=== PATIENT | female | born 2005 | race Hispanic/Latino ===

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

== ENCOUNTER 2024-02-22 16:11 | Emergency (ER) | payer OTHER ==
[~2024-02-22] VITALS: Ht 152.4 cm; Wt 80.3 kg
[2024-02-22] MEDS: MAG/ALUM/SIMETH 30 ML UDCUP PO ONE (16:48)
[2024-02-22] MEDS: LIDOCAINE HCL 2% VISCOUS 15 ML UDCUP PO ONE (16:48)
[2024-02-22 16:54] LABS: BASOPHILS # (AUTO) 0.04 K/uL (0.00-0.20); BASOPHILS % (AUTO) 0.4 % (0.0-5.0); EOSINOPHILS # (AUTO) 0.01 K/uL (0.00-0.70); EOSINOPHILS % (AUTO) 0.1 % (0.0-8.0); HEMATOCRIT 39.6 % (36-48); IMMATURE GRANULOCYTE ABSOLUTE 0.04 K/uL (0-1); LYMPHOCYTES # (AUTO) 4.4 K/uL (1.0-4.8); LYMPHOCYTES % (AUTO) 43.2 % (21.0-51.0); MEAN CORPUSCULAR HEMOGLOBIN 28.1 pg (27.0-33.0); MEAN CORPUSCULAR HGB CONC 34.6 g/dL (32.0-36.0); MEAN CORPUSCULAR VOLUME 81.3 fL (80-100); MONOCYTES # (AUTO) 0.8 K/uL (0.1-1.0); MONOCYTES % (AUTO) 7.7 % (3.0-13.0); NEUTROPHILS # (AUTO) 4.9 K/uL (1.8-7.7); NEUTROPHILS % (AUTO) 48.2 % (40.0-77.0); PLATELET COUNT (AUTO) 309 K/uL (130-400); RED BLOOD CELL COUNT(AUTO) 4.87 MIL/uL (4.00-5.50); RED CELL DISTRIBUTION WIDTH 12.7 % (11.0-15.5); WHITE BLOOD COUNT (AUTO) 10.1 K/uL (4.8-10.8)
[2024-02-22 17:11] LABS: CREATININE 0.8 mg/dL (0.5-1.0); POTASSIUM 3.8 mmol/L (3.5-5.1)
[2024-02-22 17:47] VITALS: BP 123/74; PULSE 78; RESP 18; O2SAT 98
== END 2024-02-22 17:52 | disposition home or self-care (01) ==
LOC: EDH 16:11
DX: K21.9 Gastro-esophageal reflux disease without esophagitis (principal)
CPT/HCPCS: 36415; 71045; 80048; 84484; 85025; 93005

== ENCOUNTER 2024-02-24 12:34 | Emergency (ER) | payer OTHER ==
[~2024-02-24] VITALS: Ht 152.4 cm; Wt 78.0 kg
[2024-02-24] MEDS: KETOROLAC 60 MG VIAL (30MG/ML) IM ONE (13:06)
[2024-02-24] MEDS ORDERED: IBUP-2077 PO (13:58)
[2024-02-24] MEDS ORDERED: METH4TAB3 PO (13:58)
[2024-02-24 14:03] VITALS: BP 110/62; PULSE 75; RESP 16; O2SAT 99
== END 2024-02-24 14:13 | disposition home or self-care (01) ==
LOC: EDH 12:34
DX: M94.0 Chondrocostal junction syndrome [Tietze] (principal)
CPT/HCPCS: 99284; 84484; 96372; 93005; J1885

== ENCOUNTER 2024-04-12 15:48 | Emergency (ER) | payer OTHER ==
[~2024-04-12] VITALS: Ht 154.9 cm; Wt 70.3 kg
[~2024-04-12 15:48] MED LIST: IBUP-2077 PO; METH4TAB3 PO
[2024-04-12 16:40] LABS: ADD UA MICROSCOPIC YES; APPEARANCE,URINE CLEAR (CLEAR); BILIRUBIN,URINE NEGATIVE (NEGATIVE); COLOR,URINE YELLOW (YELLOW); GLUCOSE, URINE (UA) NEGATIVE (NEGATIVE); KETONES,URINE 100 mg/dL (NEGATIVE); LEUKOCYTE ESTERASE ,URINE NEGATIVE Leu/uL (NEGATIVE); NITRATE,URINE NEGATIVE (NEGATIVE); OCCULT BLOOD,URINE SMALL (NEGATIVE); PH,URINE 5.5 (5.0-8.0); PROTEIN,URINE 30 mg/dL (NEGATIVE); UROBILINOGEN,URINE 3 mg/dL (0.2-1.0)
[2024-04-12 16:43] LABS: BACTERIA,URINE RARE /HPF (None Seen); MUCUS,URINE FEW LPF (None Seen); SQUAMOUS EPITHELIAL CELL,UR FEW /HPF (0-2)
[2024-04-12 16:44] LABS: HCG,QUALITATIVE URINE NEGATIVE (NEGATIVE)
[2024-04-12 16:58] LABS: BASOPHILS # (AUTO) 0.04 K/uL (0.00-0.20); BASOPHILS % (AUTO) 0.4 % (0.0-5.0); EOSINOPHILS # (AUTO) 0.01 K/uL (0.00-0.70); EOSINOPHILS % (AUTO) 0.1 % (0.0-8.0); HEMATOCRIT 39.5 % (36-48); IMMATURE GRANULOCYTE ABSOLUTE 0.02 K/uL (0-1); LYMPHOCYTES # (AUTO) 3.1 K/uL (1.0-4.8); LYMPHOCYTES % (AUTO) 33.8 % (21.0-51.0); MEAN CORPUSCULAR HGB CONC 34.2 g/dL (32.0-36.0); MEAN CORPUSCULAR VOLUME 81.8 fL (80-100); MONOCYTES # (AUTO) 0.6 K/uL (0.1-1.0); MONOCYTES % (AUTO) 6.7 % (3.0-13.0); NEUTROPHILS # (AUTO) 5.4 K/uL (1.8-7.7); NEUTROPHILS % (AUTO) 58.8 % (40.0-77.0); PLATELET COUNT (AUTO) 351 K/uL (130-400); RED BLOOD CELL COUNT(AUTO) 4.83 MIL/uL (4.00-5.50); RED CELL DISTRIBUTION WIDTH 12.2 % (11.0-15.5); WHITE BLOOD COUNT (AUTO) 9.2 K/uL (4.8-10.8)
[2024-04-12 17:05] LABS: CREATININE 0.8 mg/dL (0.5-1.0); POTASSIUM 3.8 mmol/L (3.5-5.1)
[2024-04-12 17:34] LABS: ALBUMIN 4.4 g/dL (3.5-5.0); BILIRUBIN,DIRECT 0.2 mg/dL (0.0-0.3); BILIRUBIN,TOTAL 0.7 mg/dL (0.2-1.0); TOTAL PROTEIN, SERUM 8.5 g/dL (6.0-8.3)
[2024-04-12 18:23] VITALS: BP 104/67; PULSE 67; RESP 17; TEMP 98.6; O2SAT 96
== END 2024-04-12 18:29 | disposition home or self-care (01) ==
LOC: EDH 15:48
DX: K76.0 Fatty (change of) liver, not elsewhere classified (principal); F41.9 Anxiety disorder, unspecified; Z79.899 Other long term (current) drug therapy
CPT/HCPCS: 36415; 74176; 80048; 80076; 81001; 81025; 85025

== ENCOUNTER 2024-05-30 14:25 | Emergency (ER) | payer SELFPAY ==
[~2024-05-30] VITALS: Ht 154.9 cm; Wt 70.3 kg
--- NOTE | 2024-05-30 14:40 | ERN ---
ED Note History of Present Illness Stated Complaint: BURNING URINATION Chief Complaint: Painful Urination Time Seen by MD: 14:29 Dictation: PATIENT IS A 19-YEAR-OLD FEMALE STATES SHE WAS HAVING BURNING URINATION ONSET YESTERDAY THAT WITHOUT FEVER CHILLS NAUSEA VOMITING. SHE STATES THE BURNING WENT AWAY AND THEN THIS MORNING CAME BACK AND NOW SHE SEES SOME BLOOD IN HER URINE. SHE DENIES ANY FLANK PAIN HAS NOT TAKEN ANYTHING PRIOR TO ARRIVAL FOR PAIN. STATES SHE DOES HAVE A HISTORY OF URINARY TRACT INFECTIONS, ALSO IS SEXUA LLY ACTIVE WITHOUT CONTROL. Allergies: Coded Allergies: No Known Allergies (Unverified Allergy, Unknown, 02/22/24) Home Meds Active Scripts Phenazopyridine HCl (Pyridium) 200 Mg Tablet, 200 MG PO TID for painful urination, #10 TAB 0 Refills Prov:MARINA OLIVEROS NP 05/30/24 Ibuprofen (Ibuprofen 800 mg Tab) 800 Mg Tab, 800 MG PO Q8H PRN for fever or pain, #30 TAB 0 Refills Prov:MARINA OLIVEROS NP 05/30/24 Amoxicillin/Potassium Clav (Amox Tr-K Clv 875-125 mg Tab) 875 Mg-125 Mg Tablet, 1 EACH PO BID for 7 Days, #14 TAB 0 Refills Prov:MARINA OLIVEROS NP 05/30/24 Ibuprofen (Ibuprofen 800 mg Tab) 800 Mg Tab, 800 MG PO Q8H PRN for fever or pain, #30 TAB 0 Refills Prov:MARINA OLIVEROS NP 02/24/24 Methylprednisolone (Medrol) 4 Mg Tab.ds.pk, 4 MG PO AD, #1 UNIT Prov:MARINA OLIVEROS NP 02/24/24 Past Medical History Past Medical History: No Pertinent History, Anxiety Additional Past Medical Hx: FATTY LIVER Surgical History: None PSYCH History: no pertinent psych hx History: Not Applicable RN Note Reviewed/Agreed w/PFSH: Yes Review of System Dictation CONSTITUTIONAL: NEGATIVE EXCEPT FOR HPI HEAD/FACE: NEGATIVE EXCEPT FOR HPI EENT: NEGATIVE EXCEPT FOR HPI RESPIRATORY: NEGATIVE EXCEPT FOR HPI GASTROINTESTINAL/ABDOMINAL: NEGATIVE EXCEPT FOR HPI GENITOURINARY: NEGATIVE EXCEPT FOR HPI DYSURIA WITH HEMATURIA MUSCULOSKELETAL: NEGATIVE EXCEPT FOR HPI INTEGUMENTARY: NEGATIVE EXCEPT FOR HPI NEUROLOGICAL/PSYCH: NEGATIVE EXCEPT FOR HPI HEMATOLOGIC/LYMPHATIC: NEGATIVE EXCEPT FOR HPI ALL SYSTEMS NEGATIVE, EXCEPT NOTED ABOVE. 13 POINT REVIEW OF SYSTEMS ASSESSED AND ALL NEGATIVE EXCEPT FOR ABOVE. Initial Vital Sign VS Vital Signs Date Time Temp Pulse Resp B/P (MAP) Pulse Ox O2 Delivery O2 Flow Rate FiO2 05/30/24 14:43 98.8 101 18 123/70 99 Room Air 05/30/24 16:26 0 21 Physical Exam Dictation VITAL SIGNS REVIEWED GENERAL APPEARANCE: ALERT, ORIENTED X 3, MILD ACUTE DISTRESS, WELL DEVELOPED, NOURISHED. HEAD AND FACE: NON-TRAUMATIC. EYES: PERRL, PINK CONJUNCTIVAS, EYELID NO TRAUMA, ANTERIOR CHAMBER WITH ARCUS SENILIS. EARS: PINNAS INTACT AND NO SIGNS OF TRAUMA OR ERYTHEMA EAR CANALS CLEAR AND NO DISCHARGE TM NO ERYTHEMA NOSE: NO DISCHARGE, NO BLEEDING. OROPHARYNX: MOUTH NORMAL, TONGUE PINK, PHARYNX CLEAR,NO ERYTHEMA, TONSILS NO EXUDATES, NO ABSCESSES NOTED, MUCOUS MEMBRANE MOIST NECK: SUPPLE, NON-TENDER, NO THYROMEGALY, NO MASSES, NO JVD, NO BRUITS BREAST:DEFERRED CHEST:NO TENDERNESS, NO CREPITUS, NO PARADOXICAL MOVEMENT, NO RETRACTIONS LUNGS:CLEAR, WELL-VENTILATED, SYMMETRIC, NO RALES, NO WHEEZING, NO RHONCHI, NO STRIDOR, GOOD BREATH SOUNDS BILATERALLY HEART: REGULAR RATE, REGULAR RHYTHM, NO MURMUR, NO GALLOPS VASCULAR: NO PERIPHERAL EDEMA, ABDOMEN: SOFT, POSITIVE BOWEL SOUNDS, NONDISTENDED, NO GUARDING, NONTENDER, NO REBOUND, NO MASSES NO HEPATOMEGALY, NO SPLENOMEGALY, NO REDDY'S SIGN, NO HERNIAS. RECTAL: DEFERRED GENITAL: DEFERRED NEUROLOGICAL: NORMAL SPEECH, MOTOR FUNCTION INTACT, SENSORY FUNCTION INTACT MUSCULOSKELETAL: NECK NONTENDER, FULL RANGE OF MOTION, BACK NONTENDER, FULL RANGE OF MOTION, EXTREMITIES: NONTENDER, FULL RANGE OF MOTION SKIN: COLOR PINK, DRY, NO TURGOR, NO RASH, NO LACERATIONS, NO ABRASIONS, NO CONTUSIONS. LYMPHATIC: DEFERRED Results (Laboratory/Radiology) Laboratory/Radiology Laboratory Tests Test 05/30/24 14:45 Urine Color LIGHT-ORANGE (YELLOW) Urine Appearance TURBID (CLEAR) Urine pH 7.0 (5.0-8.0) Urine Specific [place] 1.019 (1.001-1.031) Urine Protein 70 mg/dL (NEGATIVE) H Urine Glucose (UA) NEGATIVE mg/dL (NEGATIVE) Urine Ketones NEGATIVE mg/dL (NEGATIVE) Urine Occult Blood LARGE (NEGATIVE) H Urine Nitrate NEGATIVE (NEGATIVE) Urine Bilirubin NEGATIVE mg/dL (NEGATIVE) Urine Urobilinogen 0.2 mg/dL (0.2-1.0) Urine Leukocyte Esterase 500 Jeanne/uL (NEGATIVE) H Urine RBC >100 /HPF (0-1) H Urine WBC 26-50 /HPF (0-1) H Urine Squamous Epithelial Cells FEW /HPF (0-2) Urine Other Crystals (Auto) 11 /HPF (None Seen) Urine Bacteria RARE /HPF (None Seen) Urine Yeast RARE /HPF (None Seen) Urine HCG, Qualitative NEGATIVE (NEGATIVE) Labs Reviewed?: Yes ED Course ED Course Orders Procedure Category Date Status Time ,Urine Test LAB 05/30/24 Complete 14:38 Urinalysis Profile LAB 05/30/24 Complete 14:38 Acetaminophen 500mg PHA 05/30/24 Complete Tab (Tylenol 500mg T 15:00 Phenazopyridine Hcl PHA 05/30/24 Complete 200 Mg Tab (Pyridium 15:00 Culture Urine LIA 05/30/24 Complete 14:58 Current Medications Medications (Trade) Dose Ordered Sig/Ana Route PRN Reason Start Time Stop Time Status Last Admin Dose Admin Acetaminophen (TYLenol 500MG TAB) 1,000 mg ONCE ONCE PO 05/30/24 15:00 05/30/24 15:01 DC 05/30/24 15:03 Phenazopyridine HCl (PYRIdium HCL 200 MG TAB) 200 mg ONCE ONCE PO 05/30/24 15:00 05/30/24 15:01 DC 05/30/24 15:03 Vital Signs Date Time Temp Pulse Resp B/P (MAP) Pulse Ox O2 Delivery O2 Flow Rate FiO2 05/30/24 16:26 98.2 78 18 133/78 98 Room Air* 0 21 05/30/24 14:43 98.8 101 18 123/70 99 Room Air FIFTEEN 30, PATIENT DISCHARGED HOME WITH A DIAGNOSIS OF ACUTE CYSTITIS WITH HEMATURIA WE WILL BE PRESCRIBED [id number] TWICE A DAY FOR SEVEN DAYS AND PYRIDIUM. Medical Decision Making MDM MEDICAL DISCHARGE MAKING BASED ON URINALYSIS AND HCG FROM URINE. PATIENT HAS A ACUTE CYSTITIS WITH HEMATURIA HCG IS NEGATIVE. DISCHARGED HOME ON AUGMENTIN/PYRIDIUM AND IBUPROFEN TOLD TO INCREASE YOUR WATER INTAKE. DX & DISP Disposition: Discharge Departure Impression: Primary Impression: Acute cystitis with hematuria Additional Impression: Dysuria Condition: Stable Scripts Phenazopyridine HCl (Pyridium) 200 Mg Tablet 200 MG PO TID for painful urination, #10 TAB 0 Refills Prov: MARINA OLIVEROS NP 05/30/24 Ibuprofen (Ibuprofen 800 mg Tab) 800 Mg Tab 800 MG PO Q8H PRN for fever or pain, #30 TAB 0 Refills Prov: MARINA OLIVEROS NP 05/30/24 Amoxicillin/Potassium Clav (Amox Tr-K Clv 875-125 mg Tab) 875 Mg-125 Mg Tablet 1 EACH PO BID for 7 Days, #14 TAB 0 Refills Prov: MARINA OLIVEROS NP 05/30/24 Additional Instructions: FOLLOW-UP WITH PRIMARY CARE PROVIDER IN 1 TO 2 DAYS. TAKE MEDICATIONS DIRECTED HERE IN THE EMERGENCY ROOM. OKAY TO CONTINUE HOME MEDICATIONS UNLESS OTHERWISE DISCUSSED DURING YOUR VISIT IN THE EMERGENCY ROOM TODAY. RETURN TO YOUR NEAREST EMERGENCY ROOM IF SYMPTOMS WORSEN OR IF THERE IS NO IMPROVEMENT. CALL 911 IF YOU NEED IMMEDIATE ASSISTANCE. TAKE TYLENOL OR MOTRIN [id number] NEEDED AND IF NO CONTRAINDICATIONS ARE PRESENT. INCREASE ORAL HYDRATION. A WOUND CULTURE OR URINE CULTURE WAS ORDERED HERE IN THE EMERGENCY ROOM DEPARTMENT PLEASE FOLLOW-UP WITH PRIMARY CARE PROVIDER AND ADVISE THEM TO GET REPEAT PORTS FROM OUR FACILITY. IF YOU HAD ANY SOPHIA WRAP/SPLINTS THAT WERE APPLIED HERE, PLEASE DO NOT REMOVE THEM UNTIL YOU SEE YOUR PRIMARY CARE OR SPECIALTY. TAKE ANTIBIOTICS DIRECTED UNTIL GONE. TAKE PYRIDIUM3 TIMES A DAY FOR THREE DAYS WITH FOOD. INCREASE YOUR WATER INTAKE. AND SEE YOUR PRIMARY CARE DOCTOR FOR FOLLOW UP. Referrals: SELF,REFERRAL (PCP) Time of Disposition: 15:31 I have reviewed the case, and I agree with, Diagnosis and Plan ATTESTATION BY PHYSICIAN I PERFORMED THE SUBSTANTIVE PORTION OF THE VISIT. I HAVE REVIEWED AND PERSONALLY MADE AND APPROVED THE MANAGEMENT PLAN THAT IS DOCUMENTED IN THE NOTE BY MYSELF FOR THE A PP. I ACKNOWLEDGED FOR RESPONSIBILITY FOR THE PATIENT'S MANAGEMENT PLAN. MARINA OLIVEROS NP May 30, 2024 14:40 MAK PERAZA MD Jun 01, 2024 16:35
[2024-05-30 14:54] LABS: APPEARANCE,URINE TURBID (CLEAR); BILIRUBIN,URINE NEGATIVE (NEGATIVE); COLOR,URINE LIGHT-ORANGE (YELLOW); GLUCOSE, URINE (UA) NEGATIVE (NEGATIVE); KETONES,URINE NEGATIVE (NEGATIVE); LEUKOCYTE ESTERASE ,URINE 500 Leu/uL (NEGATIVE); NITRATE,URINE NEGATIVE (NEGATIVE); OCCULT BLOOD,URINE LARGE (NEGATIVE); PROTEIN,URINE 70 mg/dL (NEGATIVE); UROBILINOGEN,URINE 0.2 mg/dL (0.2-1.0)
[2024-05-30 14:58] LABS: ADD UA MICROSCOPIC YES
[2024-05-30 14:59] LABS: HCG,QUALITATIVE URINE NEGATIVE (NEGATIVE)
[2024-05-30 15:03] LABS: BACTERIA,URINE RARE /HPF (None Seen); MUCUS,URINE RARE LPF (None Seen); RBC,URINE >100 /HPF (0-1); SQUAMOUS EPITHELIAL CELL,UR FEW /HPF (0-2); UNCLASSIFIED CRYSTAL 11 /HPF (None Seen); WBC,URINE 26-50 /HPF (0-1); YEAST,URINE BUDDING RARE /HPF (None Seen)
[2024-05-30] MEDS: PHENAZOpyridine HCL 200 MG TAB 200 MG TABLET PO ONE (15:03)
[2024-05-30] MEDS: acetaMINOPHEN 500 MG TABLET PO ONE (15:03)
[2024-05-30] MEDS ORDERED: PHEN-776 PO (15:32)
[2024-05-30] MEDS ORDERED: AMOX1TAB16 PO (15:32)
[2024-05-30 16:26] VITALS: BP 133/78; PULSE 78; RESP 18; TEMP 98.3; O2SAT 98
== END 2024-05-30 16:52 | disposition home or self-care (01) ==
LOC: EDH 14:25
DX: N30.01 Acute cystitis with hematuria (principal); R30.0 Dysuria; Z79.899 Other long term (current) drug therapy
CPT/HCPCS: 81001; 81025; 87086; 87186

== ENCOUNTER 2024-12-04 13:19 | Emergency (ER) | payer MEDICAID ==
[~2024-12-04] VITALS: Ht 154.9 cm; Wt 72.6 kg
[~2024-12-04 13:19] MED LIST changes: +AMOX1TAB16 PO; +PHEN-776 PO
[2024-12-04 13:45] LABS: APPEARANCE,URINE CLEAR (CLEAR); BILIRUBIN,URINE NEGATIVE (NEGATIVE); COLOR,URINE COLORLESS (YELLOW); GLUCOSE, URINE (UA) NEGATIVE (NEGATIVE); KETONES,URINE NEGATIVE (NEGATIVE); LEUKOCYTE ESTERASE ,URINE 250 Leu/uL (NEGATIVE); NITRATE,URINE NEGATIVE (NEGATIVE); OCCULT BLOOD,URINE MODERATE (NEGATIVE); PROTEIN,URINE NEGATIVE (NEGATIVE); UROBILINOGEN,URINE 0.2 mg/dL (0.2-1.0)
[2024-12-04 13:46] LABS: ADD UA MICROSCOPIC YES; HCG,QUALITATIVE URINE POSITIVE (NEGATIVE)
[2024-12-04 14:06] LABS: MUCUS,URINE RARE LPF (None Seen); RBC,URINE 0-1 /HPF (0-1); SQUAMOUS EPITHELIAL CELL,UR RARE /HPF (0-2); WBC,URINE 51-100 /HPF (0-1)
[2024-12-04] MEDS ORDERED: CEPH500B PO (14:27)
--- NOTE | 2024-12-04 14:27 | ERN ---
ED Note History of Present Illness Stated Complaint: BURNING WHEN URINATING Chief Complaint: Painful Urination Time Seen by MD: 13:22 Time Seen by Midlevel: 13:25 Dictation: 19-year-old female with no past medical history complaining of dysuria onset y esterday. Denies having any fevers, abdominal pain, nausea, vomiting, flank pain. Patient is seven months . Denies any complaints. Denies any vaginal bleeding, vaginal discharge. Allergies: Coded Allergies: No Known Allergies (Unverified Allergy, Unknown, 02/22/24) Home Meds Active Scripts Cephalexin Monohydrate (Keflex) 500 Mg Cap, 500 MG PO QID for 7 Days, #28 CAP Prov:EUGENIO MOY NP 12/04/24 Phenazopyridine HCl (Pyridium) 200 Mg Tablet, 200 MG PO TID for painful urination, #10 TAB 0 Refills Prov:MARINA OLIVEROS NP 05/30/24 Ibuprofen (Ibuprofen 800 mg Tab) 800 Mg Tab, 800 MG PO Q8H PRN for fever or pain, #30 TAB 0 Refills Prov:MARINA OLIVEROS NP 05/30/24 Amoxicillin/Potassium Clav (Amox Tr-K Clv 875-125 mg Tab) 875 Mg-125 Mg Tablet, 1 EACH PO BID for 7 Days, #14 TAB 0 Refills Prov:MARINA OLIVEROS NP 05/30/24 Ibuprofen (Ibuprofen 800 mg Tab) 800 Mg Tab, 800 MG PO Q8H PRN for fever or pain, #30 TAB 0 Refills Prov:MARINA OLIVEROS NP 02/24/24 Methylprednisolone (Medrol) 4 Mg Tab.ds.pk, 4 MG PO AD, #1 UNIT Prov:MARINA OLIVEROS NP 02/24/24 Past Medical History Past Medical History: No Pertinent History Additional Past Medical Hx: FATTY LIVER Surgical History: None History: Not Applicable : 1 Para: 0 Aborts: 0 Review of System Dictation Constitutional: Negative for fever,chills, and weight loss Eyes: Negative for injury, pain,redness, and discharge ENT: Negative for injury,pain or swelling Cardiovascular: Negative for chest pain, palpitations, and edema Respiratory: Negative for shortness of breath, cough, and wheezing, Abdomen/GI: Negative for abdominal pain, nausea, vomiting, diarrhea, and constipation Back: Negative for injury and pain : Complaining of burning when urinating MS/Extremity: Negative for injury and deformity Skin: Negative for rash, and discoloration Neuro: Negative for headache, weakness, numbness, tingling, and seizure Psych: Negative for suicide ideation, homicidal ideation, and hallucinations Review of Systems: was completed Initial Vital Sign VS Vital Signs Date Time Temp Pulse Resp B/P (MAP) Pulse Ox O2 Delivery O2 Flow Rate FiO2 12/04/24 13:21 98.1 89 12 120/70 99 Room Air 0 Physical Exam Dictation General: awake, alert, NAD Head/Face: Normocephalic, atraumatic Eyes: PERRL, EOMI, vision at baseline ENT: oral cavity clear, TMs clear, no signs of infection Neck: Trachea midline, supple, no nuchal rigidity Cardiovascular: RRR, normal S1/S2, No MRGs, no JVD Respiratory: CTAB, no respiratory distress, No rales or wheezes Abdomen: Soft, non-tender, non-distended, normal bowel sounds, no guarding or rebound. No CVA tenderness Skin: Warm, dry, normal turgor, no rash MS/Extremity: Pulses equal, no cyanosis, neurovascular intact, FROM Neuro: COAx4, GCS 15, strength 5/5, CN 2-12 intact, normal cerebellar exam, normal gait, Psych: Normal behavior, mood, and affect normal Results (Laboratory/Radiology) Laboratory/Radiology Laboratory Tests Test 12/04/24 13:24 Urine Color COLORLESS (YELLOW) Urine Appearance CLEAR (CLEAR) Urine pH 7.0 (5.0-8.0) Urine Specific [place] 1.003 (1.001-1.031) Urine Protein NEGATIVE mg/dL (NEGATIVE) Urine Glucose (UA) NEGATIVE mg/dL (NEGATIVE) Urine Ketones NEGATIVE mg/dL (NEGATIVE) Urine Occult Blood MODERATE (NEGATIVE) H Urine Nitrate NEGATIVE (NEGATIVE) Urine Bilirubin NEGATIVE mg/dL (NEGATIVE) Urine Urobilinogen 0.2 mg/dL (0.2-1.0) Urine Leukocyte Esterase 250 Jeanne/uL (NEGATIVE) H Urine RBC 0-1 /HPF (0-1) Urine WBC 51-100 /HPF (0-1) H Urine Squamous Epithelial Cells RARE /HPF (0-2) Urine Bacteria None /HPF (None Seen) Urine Hyaline Casts 2-5 /LPF (0-1 /LPF) H Urine HCG, Qualitative POSITIVE (NEGATIVE) H Labs Reviewed?: Yes ED Course ED Course Orders Procedure Category Date Status Time Urinalysis Profile LAB 12/04/24 Complete 13:25 ,Urine Test LAB 12/04/24 Complete 13:25 Culture Urine LIA 12/04/24 In Process 13:46 Ceftriaxone 1g Vial PHA 12/04/24 Complete (Rocephine 1g Inj) 14:21 *Nursing CPOE 12/04/24 Transmitted Communication: 14:22 Current Medications Medications (Trade) Dose Ordered Sig/Ana Route PRN Reason Start Time Stop Time Status Last Admin Dose Admin Ceftriaxone Sodium (ROCEphine 1G INJ) 1 gm ONCE STAT IVPB 12/04/24 14:21 12/04/24 14:25 DC Vital Signs Date Time Temp Pulse Resp B/P (MAP) Pulse Ox O2 Delivery O2 Flow Rate FiO2 12/04/24 13:21 98.1 89 12 120/70 99 Room Air 0 Medical Decision Making MDM MDM: 19-year-old female with no past medical history complaining of dysuria onset yesterday. Denies having any fevers, abdominal pain, nausea, vomiting, flank pain. Patient is seven months . Denies any complaints. Denies any vaginal bleeding, vaginal discharge. heart tones 152. UA shows evidence of urinary tract infection. Rocephin given in the emergency room patient will be discharged with antibiotics. Educated patient on findings to follow up with the OBGYN on Friday. Educated patient on red flag symptoms of when to return back to the ER. Patient verbalized understanding, answered all questions. Differential diagnosis: Urinary tract infection, pyelonephritis Rationale: Tests considered and ordered secondary to shared decision making include: Previous outside records reviewed: Old ER visits. Risk of complication and/or morbidity or mortality of patient management: None Medications-Per medication reconciliation Need for hospitalization: Patient does not meet criteria for hospitalization. Need for emergency major/minor surgery: No There are no social concerns with this patient. Prescription drug management Prescriptions will include symptomatic care Patient's prior external medical records from other ER visits were reviewed by me as indicated. Prior testing and results from previous visits were reviewed. Prior tests were taken into account with medical decision making and resource utilization, independent historian/historians were used to obtain complete medical history. I independently interpreted the test that were performed, results were reviewed by me and considered findings on radiology if ordered. Medical management and examination interpretation discussions were had by me with other qualified healthcare professionals as indicated for the patient's care. DX & DISP Disposition: Discharge Departure Impression: Primary Impression: Urinary tract infection Condition: Stable Scripts Cephalexin Monohydrate (Keflex) 500 Mg Cap 500 MG PO QID for 7 Days, #28 CAP Prov: UEGENIO MOY GAUGER DELIVERY 12/04/24 Additional Instructions: Take antibiotics as prescribed. Follow up with your OBGYN in 1-2 days. Return to a ER that has obstetric a services if any worsening condition. Referrals: SELF,REFERRAL (PCP) Time of Disposition: 14:29 I have reviewed the case, and I agree with, Diagnosis and Plan EUGENIO MOY NP December 04, 2024 14:27
[2024-12-04] MEDS: cefTRIAXone 1G VIAL IVPB STA (14:45)
[2024-12-04 15:04] VITALS: BP 122/65; PULSE 75; RESP 15; TEMP 97.8; O2SAT 100
== END 2024-12-04 15:05 | disposition home or self-care (01) ==
LOC: EDH 13:19
DX: N39.0 Urinary tract infection, site not specified (principal)
CPT/HCPCS: 99283; 96374; 87086; 81001; 81025; J0696